=== PATIENT | female | born 2000 | race Two or more races ===

== ENCOUNTER 2023-10-05 21:24 | Emergency (ER) | payer OTHER ==
[~2023-10-05] VITALS: Ht 160 cm; Wt 52.2 kg
[2023-10-05 23:50] LABS: PH,URINE 6.5 (5.0-8.0); URINE APPEARANCE Clear; URINE BILIRRUBIN Negative (NEGATIVE); URINE BLOOD NHT; URINE COLOR Yellow; URINE GLUCOSE Negative (NEGATIVE); URINE LEUKOCYTE Large; URINE NITRATE Negative; URINE PROTEIN Negative (NEGATIVE); URINE UROBILINOGEN 0.2 E.U./dl
[2023-10-05 23:51] LABS: URINE EPITHELIAL CELLS 10.9 uL (0.0-38.8); URINE RBC 27.7 uL (0.0-20.8)
[2023-10-05 23:51] LABS: HEMATOCRIT 39.4 % (36.0-45.00); HEMOGLOBIN 13.1 g/dL (12.0-15.00); MEAN CELL VOLUME 79.2 fL (80.00-100.00); MEAN CORPUSCULAR HEMOGLOBIN 26.3 pg (27.00-32.0); MEAN CORPUSCULAR HGB CONC 33.2 g/dl (32.0-36.0); PLATELET COUNT 222 K/uL (150-450); RED BLOOD COUNT 4.98 M/uL (4.00-6.00); RED CELL DISTRIBUTION WIDTH 13.8 % (11.5-14.5)
[2023-10-06 00:14] LABS: CALCIUM 9.3 mg/dL (8.5-10.1); CREATININE SERUM 0.67 mg/dL (0.55-1.02); GFR 111.11; POTASSIUM 3.6 mEq/L (3.5-5.1)
[2023-10-06] MEDS ORDERED: CEPHALEXIN500 MG PO (03:46)
[2023-10-06] MEDS ORDERED: KETO10TA2 PO ×2 (03:48→03:49)
== END 2023-10-06 04:13 ==
LOC: ER 21:25
PROVIDERS: Emergency Medicine
DX: N39.0 Urinary tract infection, site not specified (principal)